=== PATIENT | female | born 1970 | race African-American/Black ===

== ENCOUNTER 2018-11-28 12:50 | Emergency (ER) | payer OTHER ==
[~2018-11-28] VITALS: Ht 165.1 cm; Wt 104.3 kg
[2018-11-28 13:28] VITALS: BP 136/84
--- NOTE | 2018-11-28 14:12 | RAD ---
3 view left wrist HISTORY: Pain AP lateral oblique views The visualized osseous structures appear normal. IMPRESSION: No acute findings. Electronically signed by: Ivan Valdes III, MD (11/28/2018 2:09 PM) [facility]
[2018-11-28] MEDS ORDERED: DICL50TA4 PO (14:47)
--- NOTE | 2018-11-28 14:47 | PHYS DOC ---
Past Medical History Past Medical History: Arthritis, Diabetes-Type II, Hypertension Past Surgical History: No Surgical History Alcohol Use: None Drug Use: None Adult General Chief Complaint Chief Complaint: WRIST PAIN HPI HPI Patient is a 48 year old female with history of arthritis, diabetes type 2, hypertension, who presents the ED today complaining of 10 out of 10 left wrist pain specifically on the ulnar aspect of the wrist that began yesterday at work , patient works at [employer] at the [employer], denies any known injury. She states work is exacerbating the pain. Denies anything specifically relieving the pain. Review of Systems Review of Systems Constitutional: Denies fever or chills [] Musculoskeletal: Reports left wrist pain Integument: Denies rash or skin lesions [] Neurologic: Denies headache, focal weakness or sensory changes [] All other systems were reviewed and found to be within normal limits, except as documented in this note. Physical Exam Physical Exam Constitutional: Well developed, well nourished, no acute distress, non-toxic appearance. [] Skin: Warm, dry, no erythema, no rash. [] Back: No tenderness, no CVA tenderness. [] Extremities: Left wrist with no obvious deformity, no scaphoid tenderness, full range of motion to the left wrist, adequate radial, medial, ulnar sensation to the left wrist. +2 left radial pulse. Cap refill less than 2 seconds the right upper extremity. Neurologic: Alert and oriented X 3, normal motor function, normal sensory function, no focal deficits noted. [] Psychologic: Affect normal, judgement normal, mood normal. [] Current Patient Data Vital Signs Vital Signs Date Time Temp Pulse Resp B/P (MAP) Pulse Ox O2 Delivery O2 Flow Rate FiO2 11/28/18 13:28 97.9 83 16 136/84 (101) 99 Room Air 97.9 EKG EKG [] Radiology/Procedures Radiology/Procedures []PROCEDURE: WRIST 3V LEFT 3 view left wrist HISTORY: Pain AP lateral oblique views The visualized osseous structures appear normal. IMPRESSION: No acute findings. Electronically signed by: Shaniqua Cannon III, MD (11/28/2018 2:09 PM) [facility] DICTATED and SIGNED BY: SHANIQUA CANNON III, MD DATE: 11/28/18 9663 Course & Med Decision Making Course & Med Decision Making Pertinent Labs and Imaging studies reviewed. (See chart for details) This is a 48-year-old female patient presenting to the ED today with left wrist pain, no known injury. Left wrist x-rays interpreted by radiologist are negative for any acute findings. Left wrist Maurizio bandage applied by the ED RN, neurovascular exam is intact. Ice elevation encouraged. Diclofenac Rx given. Follow-up with orthopedic doctor in 1-2 weeks. Dragon Disclaimer Dragon Disclaimer This electronic medical record was generated, in whole or in part, using a voice recognition dictation system. Departure Departure Impression: Primary Impression: Left wrist sprain Disposition: HOME, SELF-CARE Condition: STABLE Referrals: Rossy BRICEÑO MD (PCP) KAT QUIROGA II, MD follow up in 1 week Patient Instructions: Wrist Sprain with [facility] Additional Instructions: You were seen for left wrist pain, your left wrist x-rays were negative for any acute findings, you likely have left wrist sprain. Try to ice and elevate the extremity. Wear the Maurizio bandage provided as tolerated and needed. Follow-up with your own doctor the provided orthopedic doctor in 1-2 weeks. Scripts Diclofenac Sodium (DICLOFENAC SODIUM) 50 Mg Tablet.dr 1 TAB PO BID, #20 TAB 0 Refills Prov: DAYANARA GILLESPIE APRN 11/28/18 Problem Qualifiers Primary Impression: Left wrist sprain Encounter type: initial encounter Qualified Codes: S63.502A - Unspecified sprain of left wrist, initial encounter DAYANARA GILLESPIE APRN Nov 28, 2018 14:47
== END 2018-11-28 14:57 | disposition home or self-care (01) ==
LOC: ER 12:50
DX: S63.502A Unspecified sprain of left wrist, initial encounter (principal); I10 Essential (primary) hypertension; E11.9 Type 2 diabetes mellitus without complications; X58.XXXA Exposure to other specified factors, initial encounter; Y93.89 Activity, other specified; Y92.59 Other trade areas as the place of occurrence of the external cause; Y99.0 Civilian activity done for income or pay
CPT/HCPCS: 73110; 99284

== ENCOUNTER → 2019-08-26 | Outpatient (CLI) | payer OTHER ==
[~2019-08-26] MED LIST: DICL50TA4 PO
--- NOTE | 2019-08-26 13:44 | RAD ---
CT abdomen pelvis without contrast dated 08/26/2019. No comparison available. CLINICAL INDICATION: Flank pain. Possible stone. TECHNIQUE: Contiguous axial imaging the M pelvis performed without the administration of intravenous contrast. One or more of the following individualized dose reduction techniques were utilized for this examination: 1. Automated exposure control 2. Adjustment of the mA and/or kV according to patient size 3. Use of iterative reconstruction technique. FINDINGS: Limited images of lung bases are clear. Heart size within normal limits. No pleural or pericardial effusion. Solid abdominal viscera not well evaluated in the absence of contrast material. No apparent attenuation abnormality of the liver or spleen. Pancreas, adrenal glands are unremarkable. The gallbladder is surgically absent. Kidneys are symmetric in size and attenuation. No calcific renal or ureteral stone. No hydronephrosis. Unopacified GI tract normal in caliber and contour. No focal bowel wall thickening. No inflammatory stranding in the mesentery. The appendix is normal in caliber. No ascites or lymphadenopathy. There are a few scattered diverticula within the distal colon. Abdominal aorta normal in caliber. Images of pelvis show nondistended urinary bladder. Uterus is somewhat enlarged and there is mild thickening of the endometrium. Adnexa are unremarkable. No free fluid or lymphadenopathy. Small umbilical hernia containing only fat. Bone windows show no acute findings. IMPRESSION: 1. No acute abnormality of abdomen or pelvis. No renal stone or hydronephrosis. 2. Status post cholecystectomy 3. Mild uterine enlargement with mild thickening of the endometrium. Correlate clinically. 4. Diverticulosis with no evidence of acute diverticulitis. Electronically signed by: Billy Michelle MD (08/26/2019 1:42 PM) [facility]
== END | disposition home or self-care (01) ==
LOC: CT 13:00
PROVIDERS: ATTEND Family Medicine
DX: K57.30 Diverticulosis of large intestine without perforation or abscess without bleeding (principal); K42.9 Umbilical hernia without obstruction or gangrene; N85.2 Hypertrophy of uterus; R93.89 Abnormal findings on diagnostic imaging of other specified body structures; Z90.49 Acquired absence of other specified parts of digestive tract
CPT/HCPCS: 74176

== ENCOUNTER → 2020-10-25 | Outpatient (CLI) | payer BC, OTHER ==
--- NOTE | 2020-10-25 17:50 | RAD ---
DATE: 10/25/2020 3:12 PM EXAM: MAMMO DAHLIA SCREENING BILATERAL HISTORY: Screening COMPARISON: None. This is a new baseline Bilateral CC and MLO views of the breasts were performed. Bilateral breast tomosynthesis was performed in CC and MLO projections. This study was interpreted with the benefit of Computerized Aided Detection (CAD). FINDINGS: Breast Density: SCATTERED The breast parenchyma shows scattered fibroglandular densities. Breast parenchyma level B No suspicious masses, microcalcifications or architectural distortion is present to suggest malignancy in either breast. The visualized axillae are unremarkable. IMPRESSION: No mammographic evidence of malignancy. BI-RADS CATEGORY: 1 NEGATIVE RECOMMENDED FOLLOW-UP: 12M 12 MONTH FOLLOW-UP Annual screening mammography is recommended, unless clinically indicated sooner based on symptoms or change in physical exam. PQRS compliance statement: Patient information was entered into a reminder system with a target due date for the next mammogram. Mammography is a sensitive method for finding small breast cancers, but it does not detect them all and is not a substitute for careful clinical examination. A negative mammogram does not negate a clinically suspicious finding and should not result in delay in biopsying a clinically suspicious abnormality. "Our facility is accredited by the [employer] Mammography Program."
== END ==
LOC: MAMMO 15:07
PROVIDERS: ATTEND Family Medicine
DX: Z12.31 Encounter for screening mammogram for malignant neoplasm of breast (principal)
CPT/HCPCS: 77063; 77067

== ENCOUNTER 2021-02-25 17:25 | Emergency (ER) | payer BC ==
[~2021-02-25] VITALS: Ht 165.1 cm; Wt 113.6 kg
[2021-02-25 18:25] VITALS: BP 147/88
[2021-02-25] MEDS ORDERED: TRAM-48 PO (18:52)
--- NOTE | 2021-02-25 18:53 | PHYS DOC ---
Past Medical History Past Medical History: Arthritis, Diabetes-Type II, Hypertension Past Surgical History: Cholecystectomy, Other Additional Past Surgical Histo: BILATERAL CARPAL TUNNEL RELEASE Smoking Status: Never Smoker Alcohol Use: None Drug Use: None General Adult EDM: Chief Complaint: KNEE INJURY HPI: HPI: Patient is a 50 year old female presents with a chief complaint of left knee pain. Patient states prior to arrival her left knee gave out. Patient states pain is in her left knee, she has pain with range of motion. There is no deformities noted. Patient did not fall to the ground. Patient states she has had 3 similar episodes this week. Review of Systems: Review of Systems: Macro physical review of systems: Constitutional symptoms- No fever, no chills. Eyes- No Discharge, No Visual Loss Respiratory symptoms- No shortness of breath, No wheezing, No Dyspnea on Exerti on Cardiovascular Systems; No chest pain, No Palpitations, No syncope Gastrointestinal symptoms: NO abdominal pain, no nausea, no vomiting or diarrhea. Genitourinary symptoms: No dysuria. Musculoskeletal symptoms: No back pain Positive extremity pain. NEUROLOGICAL Symptoms: No headache, no generalized weakness; No focal Weakness Skin: No rash. Heart Score: C/O Chest Pain: N/A Risk Factors: Risk Factors: DM, Current or recent (<one month) smoker, HTN, HLP, family history of CAD, obesity. Risk Scores: Score 0 - 3: 2.5% MACE over next 6 weeks - Discharge Home Score 4 - 6: 20.3% MACE over next 6 weeks - Admit for Clinical Observation Score 7 - 10: 72.7% MACE over next 6 weeks - Early Invasive Strategies Allergies: Allergies: Allergies Coded Allergies Type Severity Reaction Last Updated Verified No Known Drug Allergies 02/25/21 No Physical Exam: PE: General: alert, no acute distress. Skin: warm, dry and intact. HENT: bilateral external ears normal, oropharynx moist, nose normal. Head:: Normocephalic, atraumatic. Neck: Trachea midline. Eyes: EOMI, Normal conjunctiva, No drainage CARDIOVASCULAR: Regular rate and rhythm RESPIRATORY: No respiratory distress Back: Full range of motion. Skin: Warm, dry, no erythema, no rash. MUSCULOSKELETAL: Full range of motion of bilateral upper decreased range of motion of left knee. I do not appreciate any knee effusion. Drawer test negative pain with medial and lateral stress. No deformities noted. GASTROINTESTINAL: Abdomen soft without rebound or guarding. NEUROLOGICAL: Alert and noted to person, place and time. No neurological defic its observed Psychiatric: Cooperative. Normal judgment Current Patient Data: Vital Signs: Vital Signs Date Time Temp Pulse Resp B/P (MAP) Pulse Ox O2 Delivery O2 Flow Rate FiO2 02/25/21 18:25 98.0 88 24 147/88 (101) 100 Room Air 98.0 EKG: EKG: [] Radiology/Procedures: Radiology/Procedures: [] Wet read knee x-ray negative for acute fractures or dislocation. Course & Med Decision Making: Course & Med Decision Making Pertinent Labs and Imaging studies reviewed. (See chart for details) [] Strain negative for acute fractures or dislocation. Patient treated with Ultram. Placed in a knee immobilizer referred to her primary care physician for further evaluation if pain continues. Advised patient she may need MRI. Dragon Disclaimer: Dragon Disclaimer: This electronic medical record was generated, in whole or in part, using a voice recognition dictation system. Departure Departure Impression: Primary Impression: Knee pain, left Disposition: HOME / SELF CARE / HOMELESS Condition: STABLE Referrals: Rossy BRICEÑO MD (PCP) Patient Instructions: Knee Pain Scripts Tramadol Hcl (ULTRAM) 50 Mg Tablet 1 TAB PO PRN Q6HRS PRN for pain MDD 4 Tablet(s) for 7 Days, #28 TAB 0 Refills Prov: DEBBIE CRUM DO 02/25/21 DEBBIE CRUM DO Feb 25, 2021 18:53
--- NOTE | 2021-02-25 19:14 | RAD ---
Left knee 3 views. HISTORY: Knee pain 3 views were taken of the left knee. There is hypertrophic spurring from mild arthritis. There is no acute fracture. There is no joint effusion. IMPRESSION: 1. Mild arthritis left knee. Electronically signed by: Geovani Pathak MD (02/25/2021 7:12 PM) [facility]
== END 2021-02-25 19:00 | disposition home or self-care (01) ==
LOC: ER 17:25
DX: M25.562 Pain in left knee (principal); E11.9 Type 2 diabetes mellitus without complications; I10 Essential (primary) hypertension; Z90.49 Acquired absence of other specified parts of digestive tract
CPT/HCPCS: 29505; 73562; 99283

== ENCOUNTER 2021-08-26 01:19 | Emergency (ER) | payer BC ==
[~2021-08-26] VITALS: Ht 165.1 cm; Wt 113.0 kg
[~2021-08-26 01:19] MED LIST changes: +TRAM-48 PO
[2021-08-26] MEDS ORDERED: IBUPROFEN 200 MG TABLET. PO ONE (02:30)
[2021-08-26] MEDS ORDERED: ACETAMINOPHEN 500 MG TABLET PO ONE (02:30)
[2021-08-26] MEDS ORDERED: IV NORMAL SALINE 1000ML BAG 1,000 ML IV ONE (03:00)
--- NOTE | 2021-08-26 03:14 | RAD ---
Single view chest dated 08/26/2021 3:11 AM: COMPARISON: None Clinical Indication: Cough and shortness of breath. Findings: Single upright portable exam of the chest was performed. Heart and mediastinal contours within normal limits. There is some hazy increased density at both lung bases with prominent perihilar linear enoch ings. No consolidation or pleural effusion. No pneumothorax. IMPRESSION: 1. Mild hazy bibasilar airspace disease, atelectasis versus early pneumonia. Electronically signed by: Billy Michelle MD (08/26/2021 3:12 AM) [facility]
[2021-08-26 04:20] LABS: BASO % 1 % (0-3); EOS # 0.1 x10^3/uL (0.0-0.7); EOS % 2 % (0-3); HEMATOCRIT 28.1 % (36.0-47.0); HEMOGLOBIN 8.5 g/dL (12.0-15.5); LYMPH # 0.7 x10^3/uL (1.0-4.8); LYMPH % 10 % (24-48); MEAN CORPUSCULAR HEMOGLOBIN 19 pg (25-35); MEAN CORPUSCULAR HGB CONC 30 g/dL (31-37); MEAN CORPUSCULAR VOLUME 61 fL (79-100); MONO # 1.3 x10^3/uL (0.0-1.1); MONO % 17 % (0-9); NEUT # 5.4 x10^3/uL (1.8-7.7); NEUT % 71 % (31-73); PLATELET COUNT 328 x10^3/uL (140-400); RED BLOOD COUNT 4.61 x10^6/uL (3.50-5.40); RED CELL DISTRIBUTION WIDTH 18.6 % (11.5-14.5); WHITE BLOOD COUNT 7.5 x10^3/uL (4.0-11.0)
[2021-08-26 04:31] LABS: CALCIUM 8.1 mg/dL (8.5-10.1); GFR 70.2; POTASSIUM 4.1 mmol/L (3.5-5.1)
[2021-08-26 05:54] LABS: ANISOCYTOSIS PRESENT; HYPOCHROMIA PRESENT; MICROCYTOSIS PRESENT
[2021-08-26] MEDS ORDERED: IOHEXOL 350 MG/ML 100 ML VIAL. IV ONE (06:30)
[2021-08-26] MEDS ORDERED: CONTRAST GIVEN. MC PRN (06:30)
--- NOTE | 2021-08-26 07:02 | PHYS DOC ---
Past Medical History Past Medical History: Arthritis, Diabetes-Type II, Hypertension (JOSE PARHAM MD) Past Surgical History: Cholecystectomy, Other Additional Past Surgical Histo: BILATERAL CARPAL TUNNEL RELEASE (JOSE PARHAM MD) Smoking Status: Never Smoker Alcohol Use: None Drug Use: None (JOSE PARHAM MD) General Adult EDM: Chief Complaint: COUGH HPI: HPI: Patient is a 51 year old female who presents with 2 weeks of cough, congestion, diffuse myalgias, and now with progressive pleuritic chest pain. Patient states that is a substernal pressure that is worse with deep inspiration or coughing. Denies lower extremity edema or pain. Unsure if she has had fevers. No known COVID contacts. (JOSE PARHAM MD) Review of Systems: Review of Systems: Constitutional: Denies fever or chills. [] Eyes: Denies change in visual acuity. [] HENT: Denies nasal congestion or sore throat. [] Respiratory: Reports cough and shortness of breath Cardiovascular: Reports chest pain GI: Denies abdominal pain, nausea, vomiting, bloody stools or diarrhea. [] : Denies dysuria. [] Musculoskeletal: Denies back pain or joint pain. [] Integument: Denies rash. [] Neurologic: Denies headache, focal weakness or sensory changes. [] Endocrine: Denies polyuria or polydipsia. [] Lymphatic: Denies swollen glands. [] Psychiatric: Denies depression or anxiety. [] (JOSE PARHAM MD) Heart Score: C/O Chest Pain: Yes HEART Score for Chest Pain: HEART Score for Chest Pain Response (Comments) Value History Slighlty/Non-Suspicious 0 ECG Normal 0 Age >45 - < 65 1 Risk Factors >3 Risk Factors or Hx CAD 2 Total 3 Risk Factors: Risk Factors: DM, Current or recent (<one month) smoker, HTN, HLP, family history of CAD, obesity. Risk Scores: Score 0 - 3: 2.5% MACE over next 6 weeks - Discharge Home Score 4 - 6: 20.3% MACE over next 6 weeks - Admit for Clinical Observation Score 7 - 10: 72.7% MACE over next 6 weeks - Early Invasive Strategies (JOSE PARHAM MD) Current Medications: Current Medications Medications (Trade) Dose Ordered Sig/Grace Start Time Stop Time Status Last Admin Dose Admin Acetaminophen (Tylenol) 1,000 mg 1X ONCE 08/26/21 02:30 08/26/21 02:31 DC 08/26/21 03:38 1,000 MG Ibuprofen (Motrin) 600 mg 1X ONCE 08/26/21 02:30 08/26/21 02:31 DC 08/26/21 03:38 600 MG Info (CONTRAST GIVEN -- Rx MONITORING) 1 each PRN DAILY PRN 08/26/21 06:30 08/28/21 06:29 Iohexol (Omnipaque 350 Mg/ml) 100 ml 1X ONCE 08/26/21 06:30 08/26/21 06:31 DC Sodium Chloride 1,000 ml @ 1,000 mls/hr 1X ONCE 08/26/21 03:00 08/26/21 03:59 DC 08/26/21 03:38 1,000 MLS/HR (JOSE PARHAM MD) Allergies: Allergies: Allergies Coded Allergies Type Severity Reaction Last Updated Verified No Known Drug Allergies 02/25/21 No (JOSE PARHAM MD) Physical Exam: PE: Constitutional: Well developed, well nourished, no acute distress, non-toxic appearance. [] Cardiovascular:Heart rate regular rhythm, no murmur [] Lungs & Thorax: Wheezes heard bilaterally. Mild increased work of breathing Abdomen: Bowel sounds normal, soft, no tenderness, no masses, no pulsatile masses. [] Skin: Warm, dry, no erythema, no rash. [] Back: No tenderness, no CVA tenderness. [] Extremities: No tenderness, no cyanosis, no clubbing, ROM intact, no edema. [] Neurologic: Alert and oriented X 3, normal motor function, normal sensory function, no focal deficits noted. [] Psychologic: Affect normal, judgement normal, mood normal. [] (JOSE PARHAM MD) Current Patient Data: Labs: Laboratory Tests Test 08/26/21 02:32 08/26/21 03:35 SARS-CoV-2 Antigen (Rapid) Negative (NEGATIVE) White Blood Count 7.5 x10^3/uL (4.0-11.0) Red Blood Count 4.61 x10^6/uL (3.50-5.40) Hemoglobin 8.5 g/dL (12.0-15.5) L Hematocrit 28.1 % (36.0-47.0) L Mean Corpuscular Volume 61 fL (79-100) L Mean Corpuscular Hemoglobin 19 pg (25-35) L Mean Corpuscular Hemoglobin Concent 30 g/dL (31-37) L Red Cell Distribution Width 18.6 % (11.5-14.5) H Platelet Count 328 x10^3/uL (140-400) Neutrophils (%) (Auto) 71 % (31-73) Lymphocytes (%) (Auto) 10 % (24-48) L Monocytes (%) (Auto) 17 % (0-9) H Eosinophils (%) (Auto) 2 % (0-3) Basophils (%) (Auto) 1 % (0-3) Neutrophils # (Auto) 5.4 x10^3/uL (1.8-7.7) Lymphocytes # (Auto) 0.7 x10^3/uL (1.0-4.8) L Monocytes # (Auto) 1.3 x10^3/uL (0.0-1.1) H Eosinophils # (Auto) 0.1 x10^3/uL (0.0-0.7) Basophils # (Auto) 0.0 x10^3/uL (0.0-0.2) Platelet Estimate Pending Hypochromasia Present Anisocytosis Present Microcytosis Present D-Dimer (Shannan) 0.59 ug/mlFEU (0.00-0.50) H Sodium Level 136 mmol/L (136-145) Potassium Level 4.1 mmol/L (3.5-5.1) Chloride Level 101 mmol/L (98-107) Carbon Dioxide Level 27 mmol/L (21-32) Anion Gap 8 (6-14) Blood Urea Nitrogen 12 mg/dL (7-20) Creatinine 1.0 mg/dL (0.6-1.0) Estimated GFR (Cockcroft-Gault) 70.2 Glucose Level 202 mg/dL (70-99) H Calcium Level 8.1 mg/dL (8.5-10.1) L Laboratory Tests 08/26/21 03:35 Laboratory Tests 08/26/21 03:35 Vital Signs: Vital Signs Date Time Temp Pulse Resp B/P (MAP) Pulse Ox O2 Delivery O2 Flow Rate FiO2 1/17/22 01:45 97.9 117 20 175/88 (117) 99 Room Air 97.9 (JOSE PARHAM MD) EKG: EKG: [] Sinus rhythm. Left axis deviation. Late R wave transition. No acute ST segment changes. (JOSE PARHAM MD) Radiology/Procedures: Radiology/Procedures: [] (JOSE PARHAM MD) Impression: [facility] [address] [place] [address] IMAGING REPORT Signed PATIENT: AYLIN REDDY MACCOUNT: [id number] : 1970 LOCATION: ER AGE: 51 SEX: F EXAM STATUS: REG ER ORD. PHYSICIAN: JOSE PARHAM MD REASON: dimer+ PROCEDURE: CT ANGIOGRAPHY CHEST Study: CT CHEST WITH CONTRAST - PULMONARY ANGIOGRAM History: Elevated d-dimer. Pulmonary embolism. Comparison: Correlation is made to a CT abdomen/pelvis from 08/26/2019 Technique: Helical CT of the chest performed after the administration of 100 cc Omnipaque 350 intravenous contrast and timed for angiographic evaluation of the pulmonary arteries per PE protocol. Coronal and sagittal 3D MIP reformations were obtained. One or more of the following individualized dose reduction techniques were utilized for this examination: 1. Automated exposure control 2. Adjustment of the mA and/or kV according to patient size 3. Use of iterative reconstruction technique. Findings: Pulmonary Arteries: Limited evaluation of the segmental and subsegmental pulmonary arteries on account of patient body habitus and respiratory motion. Particularly hindered assessment of these vessels at the lower lung zones. No saddle, main or lobar embolism. Heart/Systemic Vasculature: No aortic aneurysm or dissection. Mediastinum: Small hiatal hernia. Nodular focus anterior to the upper SVC represents an ectatic vein. Mediastinal and hilar lymph nodes measure under a centimeter short axis. No pericardial effusion. Lungs: Motion degraded. A few pulmonary nodules on the right seen above and below the minor fissure measuring under 5 mm. One of these was present on the comparison but the others would have been beyond the field of view. Minimal atelectasis and bronchial wall thickening. No confluent infiltrate, pleural effusion or central airway opacification. Neck/Axilla/Body Wall: Axillary lymph nodes are not pathologically enlarged. Upper Abdomen: Cholecystectomy clips. Bones: No acute or aggressive abnormality. Miscellaneous: None. IMPRESSION: 1. Limited assessment of the peripheral pulmonary arteries secondary to respiratory motion and patient body habitus. Taking this into consideration no pulmonary embolism is identified. 2. Several pulmonary nodules on the right around the minor fissure which measure under 5 mm. Per Fleischner guidelines, CT follow-up in 12 months if there are risk factors for malignancy. Electronically signed by: KALA WU MD (08/26/2021 8:03 AM) [facility] DICTATED and SIGNED BY: KALA WU MD DATE: 08/26/21 [id number] (ROSALINDA LY DO) Course & Med Decision Making: Course & Med Decision Making Pertinent Labs and Imaging studies reviewed. (See chart for details) Patient 51-year-old female who presents with 2 weeks of cough, congestion, shortness of breath, and pleuritic chest pain. Is tachycardic to the 110s on arrival, otherwise hemodynamically stable, and satting well on room air. Patient was given IV fluids and heart rate slightly. D-dimer is positive, CTA will be obtained for further evaluation. Work-up also pertinent for anemia 8.5, without a recent hemoglobin for comparison. Patient signed out to oncoming physician with CTA, and ultimate disposition pending. 0701 (JOSE PARHAM MD) Course & Med Decision Making The patient remains awake, alert and in no acute distress. Patient is negative for COVID and given that she has been experiencing the symptoms for 2 weeks I do not believe she using any immediate danger with respect to her symptoms. CTA did not reveal any acute abnormality. It did however reveal pulmonary nodules which the patient was aware of and I told her that it is very important that she has these followed as these may be cancerous growths. I have encouraged the patient to rest over the next several days and should she develop any fevers, new chest pain or shortness of air to return to the emergency department. Patient understands and has agreed to do so. She is nontoxic-appearing and stable for discharge. Patient's heart rate at discharge is between 90 and 95 bpm and regular. (ROSALINDA LY DO) Dragon Disclaimer: Dragon Disclaimer: This electronic medical record was generated, in whole or in part, using a voice recognition dictation system. (JOSE PARHAM MD) Departure Departure Impression: Primary Impression: Chest pain Additional Impressions: Cough Shortness of breath Pulmonary nodules Anemia Disposition: 01 HOME / SELF CARE / HOMELESS Condition: STABLE Referrals: Rossy BRICEÑO MD (PCP) Patient Instructions: Anemia, Nonspecific-Brief, Chest Pain (Nonspecific), Pulmonary Nodule, Upper Respiratory Infection, Adult Scripts Levofloxacin (LEVOFLOXACIN) 750 Mg Tablet 1 TAB PO DAILY, #7 TAB Prov: ROSALINDA LY DO 08/26/21 Albuterol Sulfate (PROAIR HFA INHALER) 8.5 Gm Hfa.aer.ad 2 PUFF IH PRN Q4-6HRS PRN for wheezing for 21 Days, #1 INHALER 0 Refills Prov: ROSALINDA LY DO 08/26/21 Prednisone (PREDNISONE) 50 Mg Tablet 1 TAB PO DAILY, #5 TAB Prov: ROSALINDA LY DO 08/26/21 JOSE PARHAM MD Aug 26, 2021 07:01 ROSALINDA LY DO Aug 26, 2021 08:24
[2021-08-26 07:29] LABS: PLT ESTIMATE ADEQUATE (ADEQUATE)
--- NOTE | 2021-08-26 08:06 | RAD ---
Study: CT CHEST WITH CONTRAST - PULMONARY ANGIOGRAM History: Elevated d-dimer. Pulmonary embolism. Comparison: Correlation is made to a CT abdomen/pelvis from 08/26/2019 Technique: Helical CT of the chest performed after the administration of 100 cc Omnipaque 350 intrav enous contrast and timed for angiographic evaluation of the pulmonary arteries per PE protocol. Coron al and sagittal 3D MIP reformations were obtained. One or more of the following individualized dose reduction techniques were utilized for this examinat ion: 1. Automated exposure control 2. Adjustment of the mA and/or kV according to patient size 3. Use of iterative reconstruction technique. Findings: Pulmonary Arteries: Limited evaluation of the segmental and subsegmental pulmonary arteries on accoun t of patient body habitus and respiratory motion. Particularly hindered assessment of these vessels a t the lower lung zones. No saddle, main or lobar embolism. Heart/Systemic Vasculature: No aortic aneurysm or dissection. Mediastinum: Small hiatal hernia. Nodular focus anterior to the upper SVC represents an ectatic vein. Mediastinal and hilar lymph nodes measure under a centimeter short axis. No pericardial effusion. Lungs: Motion degraded. A few pulmonary nodules on the right seen above and below the minor fissure m easuring under 5 mm. One of these was present on the comparison but the others would have been beyond the field of view. Minimal atelectasis and bronchial wall thickening. No confluent infiltrate, pleur al effusion or central airway opacification. Neck/Axilla/Body Wall: Axillary lymph nodes are not pathologically enlarged. Upper Abdomen: Cholecystectomy clips. Bones: No acute or aggressive abnormality. Miscellaneous: None. IMPRESSION: 1. Limited assessment of the peripheral pulmonary arteries secondary to respiratory motion and patie nt body habitus. Taking this into consideration no pulmonary embolism is identified. 2. Several pulmonary nodules on the right around the minor fissure which measure under 5 mm. Per Fle ischner guidelines, CT follow-up in 12 months if there are risk factors for malignancy. Electronically signed by: KALA WU MD (08/26/2021 8:03 AM) [facility]
[2021-08-26] MEDS ORDERED: LEVO750T5 PO (08:42)
[2021-08-26] MEDS ORDERED: PRED50TA PO (08:42)
[2021-08-26] MEDS ORDERED: ALBU2.5V8 IH (08:42)
[2021-08-26 08:48] VITALS: BP 149/82
--- NOTE | 2021-08-26 10:19 | EKG ---
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
== END 2021-08-26 09:10 | disposition home or self-care (01) ==
LOC: ER 01:19
DX: D64.9 Anemia, unspecified (principal); R91.8 Other nonspecific abnormal finding of lung field; M19.90 Unspecified osteoarthritis, unspecified site; E11.9 Type 2 diabetes mellitus without complications; I10 Essential (primary) hypertension; Z20.822 Contact with and (suspected) exposure to COVID-19
CPT/HCPCS: 36415; 71045; 71275; 80048; 84484; 85025; 85379; 87426; 93005; 96360; 99285; J7030; Q9967; U0003; U0005